=== PATIENT | female | born 1970 | race Caucasian/White ===

== ENCOUNTER 2019-05-24 07:35 | Day surgery (SDC) | payer BC ==
[~2019-05-24 07:35] MED LIST: Lactated Ringers 1,000 ML IV PRN; Sodium Chloride 0.9% 10 ML Syringe FLUSH PRN
[2019-05-24] MEDS ORDERED: Midazolam 1 MG/ML 2 ML SDV IV ONE (07:36)
[2019-05-24] MEDS ORDERED: fentaNYL 100 MCG/2 ML SDV IV ONE (07:36)
--- NOTE | 2019-05-24 12:57 | OR ---
DATE OF OPERATION: 05/24/2019 SURGEON: Lynsey Castro MD PREOPERATIVE DIAGNOSES: 1. Visually-significant cataract, right eye. 2. Eyelid lesion, right eye. POSTOPERATIVE DIAGNOSES: 1. Visually-significant cataract, right eye. 2. Eyelid lesion, right eye. PROCEDURES PERFORMED: 1. Phacoemulsification with intraocular lens placement, right eye. CPT 01090. 2. Excision of eyelid lesion, right lower lid. CPT 61902. BENEFIT SPECIALIST: None. ANESTHESIA: Local with sedation. COMPLICATIONS: None. BLOOD LOSS: None. SPECIMENS: Lower lid lesion, sent to Pathology. IMPLANTS: An Garcia [id number], 24.0 diopter lens implanted. CDE: 1.06. DESCRIPTION OF PROCEDURE: After risks and benefits were reviewed with the patient, consent was obtained in the preoperative area, and the operative eye was marked with a surgical pen. In the preoperative area, a pledget was used to dilate the pupil, consisting of a mixture of phenylephrine 10%, cyclopentolate 2%, moxifloxacin 0.5%, and bupivacaine 0.75%. The patient was taken to the operating room, where a time-out was performed, and the patient was placed under monitored anesthesia care. Topical tetracaine was used for additional anesthesia. The operative eye was prepped and draped for ophthalmic surgery, and the microscope was brought into position and focussed. A 30-gauge needle with 2% lidocaine with epinephrine was used to anesthetize the right lower lid lesion that was nasal. This lesion had been growing and was irritating the patient. There was a small bruise from the injection. Ney scissors with 0.12 forceps were used to excise the lesion, which was then sent to pathology. Hemostasis was controlled with cautery. Next, Steri-Strips and Tegaderm were used to retract the lashes, and a lid speculum was placed. A paracentesis incision was made, followed by injection of preservative-free 1% lidocaine into the anterior chamber, followed by injection of Viscoat into the anterior chamber. A microkeratome blade was used to make a corneal limbal incision temporarily. A cystotome was used to make the beginning of the capsulorrhexis, which was carried around 360 degrees in a curvilinear fashion using Utrata forceps. A Lema cannula with BSS was used to hydrodissect and hydrodelineate the nucleus. The nucleus was removed in a divide and conquer manner using phacoemulsification. Irrigation and aspiration were used to remove the remaining cortical material. Provisc was used to inflate the capsular bag, and a pre-loaded 24.0 diopter lens, serial number [id number] was injected into the capsular bag. A Sinskey hook was used to position and center the lens. Next, irrigation and aspiration were used to remove any remaining viscoelastic and cortical material from the anterior chamber. BSS on a cannula was used to inflate the anterior chamber and hydrate the wound. The wound was checked and found to be watertight. 1 mg of moxifloxacin was injected into the anterior chamber. The drapes were removed and the eye was cleaned. Erythromycin ointment was applied to the lid excision. A drop of brimonidine 0.15% and a drop of TobraDex were placed into the right eye. The eye was shielded, and the patient was taken to recovery in stable condition. /[id number] PRIYANKA/CHADWICK CC: ELIZABETH DOTY, GUY MTDD
== END 2019-05-24 10:15 | disposition home or self-care (01) ==
LOC: FB.SDS 07:35 → EDUNIT# 09:00 → FB.SDS 10:15
PROVIDERS: ATTEND Ophthalmology
DX: H26.9 Unspecified cataract (principal); L82.1 Other seborrheic keratosis; I10 Essential (primary) hypertension; F32.9 Major depressive disorder, single episode, unspecified; J45.909 Unspecified asthma, uncomplicated; Z88.0 Allergy status to penicillin
CPT/HCPCS: 66984; 67840; 88305; J2250; J3010; V2632

== ENCOUNTER 2025-03-31 01:38 | Emergency (ER) | payer BC ==
[2025-03-31 02:07] LABS: GLUCOSE,URINE NORMAL (NORMAL); OCCULT BLOOD,URINE LARGE (NEGATIVE)
[2025-03-31 02:08] LABS: APPEARANCE,URINE CLOUDY (CLEAR)
[2025-03-31 02:16] LABS: SQUAMOUS EPITHELIAL CELLS,UR FEW (NS,R,O)
[2025-03-31] MEDS: Ondansetron 4 MG Tab.DIS PO ONE (02:28)
== END 2025-03-31 02:35 | disposition home or self-care (01) ==
LOC: FB.ED 01:38
DX: N39.0 Urinary tract infection, site not specified (principal); E78.00 Pure hypercholesterolemia, unspecified; I10 Essential (primary) hypertension; Z88.0 Allergy status to penicillin; Z88.8 Allergy status to other drugs, medicaments and biological substances; Z79.51 Long term (current) use of inhaled steroids; Z79.899 Other long term (current) drug therapy
CPT/HCPCS: 81001; 87086; 99283; A9270; Q0162